=== PATIENT | male | born 1935 | race Caucasian/White ===

== ENCOUNTER 2017-05-22 09:29 | Emergency (ER) | payer MEDICARE, OTHER ==
[2017-05-22 09:45] LABS: PROTHROMBIN TIME 14.3 SEC (11.4-15.4)
[2017-05-22 09:45] LABS: ABSOLUTE EOSINOPHILS # (AUTO) 0.1 10^3/uL (0.0-0.6); ABSOLUTE LYMPHOCYTES (AUTO) 4.3 10^3/uL (0.5-4.7); ABSOLUTE MONOCYTES (AUTO) 0.8 10^3/uL (0.1-1.4); BASOPHILS % (AUTO) 0.2 % (0-2); EOSINOPHILS % (AUTO) 0.5 % (0-6); HEMOGLOBIN 16.3 g/dL (13.5-17.0); LYMPHOCYTES % (AUTO) 38.2 % (13-45); MEAN CORPUSCULAR HEMOGLOBIN 31.9 pg (27.0-33.4); MEAN CORPUSCULAR VOLUME 94 fl (80-97); MONOCYTES % (AUTO) 7.2 % (3-13); PLATELET COUNT 164 10^3/uL (150-450); RED BLOOD COUNT 5.11 10^6/uL (4.35-5.55); RED CELL DISTRIBUTION WIDTH 13.6 % (11.5-14.0); SEGMENTED NEUTROPHILS % (AUTO) 53.9 % (42-78); TOTAL CELLS COUNTED % (AUTO) 100 %; WHITE BLOOD COUNT 11.2 10^3/uL (4.0-10.5)
[2017-05-22 09:46] LABS: INTERNATIONAL RATION (INR) 1.04
[2017-05-22 09:47] LABS: PARTIAL THROMBOPLASTIN TIME 26.3 SEC (23.5-35.8)
[2017-05-22] MEDS ORDERED: ALTEPLASE INJ 100 MG VIAL ONE (09:52)
--- NOTE | 2017-05-22 10:01 | RADIOLOGY REPORT (SQ) ---
EXAM DESCRIPTION: CT HEAD WITHOUT COMPLETED DATE/TIME: 05/22/2017 9:39 am REASON FOR STUDY: bed 4 stroke alert COMPARISON: None. TECHNIQUE: Axial images acquired through the brain without intravenous contrast. Images reviewed wi th bone, brain and subdural windows. Additional sagittal and coronal reconstructions were generated. Images stored on PACS. All CT scanners at this facility use dose modulation, iterative reconstruction, and/or weight based d osing when appropriate to reduce radiation dose to as low as reasonably achievable (ALARA). [facility]: Dose Right [facility]: CareDose [facility]: Dose Right [facility]: Teradose 4D [facility]: [employer] RADIATION DOSE: CT Rad equipment meets quality standard of care and radiation dose reduction techniq ues were employed. CTDIvol: 53.2 mGy. DLP: 1097 mGy-cm. mGy. LIMITATIONS: None. FINDINGS: VENTRICLES: Normal size and contour. CEREBRUM: There is increased density in the right middle cerebral artery suggesting thrombus. No mas ses. No hemorrhage. No midline shift. No evidence for acute infarction. Normal pierce/white matter d ifferentiation. No areas of low density in the white matter. CEREBELLUM: No masses. No hemorrhage. No alteration of density. No evidence for acute infarction. EXTRAAXIAL SPACES: No fluid collections. No masses. ORBITS AND GLOBE: No intra- or extraconal masses. Normal contour of globe without masses. CALVARIUM: No fracture. PARANASAL SINUSES: No fluid or mucosal thickening. SOFT TISSUES: No mass or hematoma. OTHER: No other significant finding. IMPRESSION: Increased density in the right middle cerebral artery suggesting thrombus. No evidence of hemorrhage. No early changes of infarction. EVIDENCE OF ACUTE STROKE: YES. COMMENT: Pertinent positive or negative findings of the imaging study reported as a CRITICAL EXAM t o ER charge nurse at09:53 on 05/22/2017. Category of Critical Exam: Stroke alert Quality ID # [id number]: Final reports with documentation of one or more dose reduction techniques (e.g., Au tomated exposure control, adjustment of the mA and/or kV according to patient size, use of iterative reconstruction technique) TECHNICAL DOCUMENTATION: JOB ID: [id number] [employer]- All Rights Reserved Reading location - IP/workstation name: [email or web address]
--- NOTE | 2017-05-22 10:09 | RADIOLOGY REPORT (SQ) ---
EXAM DESCRIPTION: CHEST SINGLE VIEW COMPLETED DATE/TIME: 05/22/2017 9:53 am REASON FOR STUDY: bed 4 stroke alert COMPARISON: None. EXAM PARAMETERS: NUMBER OF VIEWS: One view. TECHNIQUE: Single frontal radiographic view of the chest acquired. RADIATION DOSE: NA LIMITATIONS: None. FINDINGS: LUNGS AND PLEURA: Crowding of the vasculature in the right base felt to be related to the elevation the right hemidiaphragm. No acute opacities, masses or pneumothorax. No pleural effusion. MEDIASTINUM AND HILAR STRUCTURES: No masses. Contour normal. HEART AND VASCULAR STRUCTURES: Heart normal in size. Normal vasculature. BONES: No acute findings. HARDWARE: None in the chest. OTHER: Elevation the right hemidiaphragm. IMPRESSION: Mild elevation of the right hemidiaphragm otherwise negative chest. TECHNICAL DOCUMENTATION: JOB ID: [id number] [employer]- All Rights Reserved Reading location - IP/workstation name: [email or web address]
[2017-05-22 10:24] LABS: ALANINE AMINOTRANSFERASE 34 U/L (21-72); ALBUMIN 4.3 g/dL (3.5-5.0); ALKALINE PHOSPHATASE 59 U/L (38-126); ANION GAP 11 (5-19); ASPARTATE AMINO TRANSFERASE 42 U/L (17-59); BILIRUBIN,DIRECT 0.3 mg/dL (0.0-0.4); BILIRUBIN,TOTAL 1.4 mg/dL (0.2-1.3); BLOOD UREA NITROGEN 20 mg/dL (7-20); CALCIUM 9.6 mg/dL (8.4-10.2); CARBON DIOXIDE 27 mmol/L (22-30); CHLORIDE 103 mmol/L (98-107); CREATINE KINASE 44 U/L (55-170); GLUCOSE 173 mg/dL (75-110); POTASSIUM 3.5 mmol/L (3.6-5.0); SODIUM 140.5 mmol/L (137-145); TOTAL PROTEIN 6.9 g/dL (6.3-8.2)
[2017-05-22 10:35] LABS: CREATINE KINASE MB 0.43 ng/mL (<4.55)
[2017-05-22 10:37] VITALS: BP 136/98
[2017-05-22 10:37] LABS: TROPONIN I < 0.012 ng/mL
--- NOTE | 2017-05-22 13:05 | EKG REPORT ---
SEVERITY:- ABNORMAL ECG - ATRIAL FIBRILLATION NONSPECIFIC REPOL ABNORMALITY, DIFFUSE LEADS BORDERLINE PROLONGED QT INTERVAL : Confirmed by: Roberto Mireles MD 22-May-2017 13:04:55
--- NOTE | 2017-05-22 13:52 | ER Document Report ---
ED General - General Chief Complaint: Altered Mental Status Stated Complaint: POSSIBLE STROKE Time Seen by Provider: 05/22/17 09:57 TRAVEL OUTSIDE OF THE [place] IN LAST 30 DAYS: No - HPI Notes: Note that history is somewhat limited given patient's clinical condition. This is a 81-year-old male with a history of atrial fibrillation who presents with possible stroke. Note, the time of onset is somewhat unclear, it appears that around 6 AM he may have awoken and gone to the bathroom, although the time is not 100% confirmed. At approximately 7 AM his noted that he could not get out of bed and had slurred speech and had left-sided weakness/paralysis. There have been no falls. He is not anticoagulated. She stated that he felt "hot". Remainder of history is difficult given the patient's underlying condition. - Related Data Allergies/Adverse Reactions: rivaroxaban [From Xarelto] Allergy (Verified 05/22/17 10:31) warfarin [From Coumadin] Allergy (Verified 05/22/17 10:31) Past Medical History - Social History Smoking Status: Never Smoker Chew tobacco use (# tins/day): No Frequency of alcohol use: None Family History: Reviewed & Not Pertinent Patient has suicidal ideation: No Patient has homicidal ideation: No - Past Medical History Cardiac Medical History: Reports: Hx Atrial Fibrillation, Hx Hypertension Endocrine Medical History: Reports: Hx Diabetes Mellitus Type 1 Renal/ Medical History: Denies: Hx Peritoneal Dialysis Past Surgical History: Reports: Hx Appendectomy, Hx Orthopedic Surgery Review of Systems - Review of Systems Notes: As in the history of present illness otherwise unobtainable secondary to clinical condition Physical Exam - Vital signs Vitals: Resp 14 05/22/17 09:43 - Notes Notes: General: Well-developed, moderate distress HEENT: NC/AT, PERRL. No pharyngeal injection. Koza. Neck: Supple, no JVD. Chest: Clear with good air exchange. Cardiac: Irregular rate and rhythm Abdomen:, Nondistended, no guarding rigidity or rebound. Nontender. Back: No CVAT, unremarkable. Motor: Left upper and lower extremity shows flaccid paralysis, right upper and lower extremities show 4-5 strength and normal tone. Neurologic: Alert to person place and date, sensation is diminished in the left upper lower extremity. No clonus is noted. Cranial nerves II 12 appear grossly intact. He has left-sided neglect to speech. No limb ataxia. Dysarthria is noted but no significant aphasia. NIH stroke score of 14 is given. Skin: No rashes petechiae or purpura. Extremeties: Perfused, no significant edema. Course - Re-evaluation Re-evalutation: 05/22/17 13:52 81-year-old male who presents with CVA symptoms. Patient was identified initially by nursing staff on arrival and sent emergently to CT prior to my evaluation of the patient. On initial evaluation, it appears unclear that his icterus started after 6 AM, the uncertainty surrounding this as well as the time greater than 3 hours at age and potential for complications makes him a poor lytic candidate. CT imaging showed a large possible MCA clot, no bleed. However, it was felt that the patient would be potentially a candidate for mechanical intervention. I spoke at length with the neurologist from [facility] who felt that the patient may benefit from CT angiography of the facility and possible intervention. 05/22/17 13:55 Patient chest x-ray is unremarkable. Labs reviewed, mild hyperglycemia is noted , otherwise CBC is unremarkable and the remainder of laboratory evaluation is unremarkable. Patient is being transferred emergently to an outside facility for continued evaluation and possible emergent intervention. We do not have capability to perform this procedure at [place]. - Vital Signs Vital signs: Temp Pulse Resp BP Pulse Ox 98.6 F 106 H 27 H 136/98 H 96 05/22/17 10:28 05/22/17 11:00 05/22/17 11:00 05/22/17 11:00 05/22/17 11:00 - Laboratory Result Diagrams: 05/22/17 09:18 05/22/17 09:48 Laboratory results interpreted by me: 05/22/17 05/22/17 09:18 09:48 WBC 11.2 H Potassium 3.5 L Glucose 173 H Total Bilirubin 1.4 H Creatine Kinase 44 L - EKG Interpretation by Me Additional EKG results interpreted by me: 05/22/17 13:58 Twelve-lead ECG shows atrial fibrillation with mild rapid ventricular response, nonspecific ST-T changes, no evidence of acute ischemia. Critical Care Note - Critical Care Note Total time excluding time spent on procedures (mins): 35 Comments: Critical care time includes evaluation and management of acute ischemic stroke with possible emergent intravascular procedure to come. Includes time arranging transfer, discussed the case with consultants, reviewing labs, EKGs, radiographs and CTs. Discharge - Discharge Clinical Impression: Acute CVA (cerebrovascular accident) Condition: Critical Disposition: [facility]
== END 2017-05-22 10:59 | disposition short-term general hospital (02) ==
LOC: ER 09:29
DX: I63.9 Cerebral infarction, unspecified (principal); G81.94 Hemiplegia, unspecified affecting left nondominant side; R47.1 Dysarthria and anarthria; I10 Essential (primary) hypertension; I48.91 Unspecified atrial fibrillation; E10.65 Type 1 diabetes mellitus with hyperglycemia; Z88.8 Allergy status to other drugs, medicaments and biological substances
CPT/HCPCS: 36415; 70450; 71045; 80053; 82550; 82553; 84484; 85025; 85610; 85730; 93005; 93010; 99291